=== PATIENT | male | born 1990 | race Caucasian/White ===

== ENCOUNTER 2024-09-08 19:22 | Emergency (ER) | payer OTHER, SELFPAY ==
[2024-09-08] VITALS (22 sets, daily range): BP systolic 107–158; BP diastolic 53–104; PULSE 62–106; RESP 11–28; TEMP 36; O2SAT 94–100
--- NOTE | 2024-09-08 19:15 | DI.CT_ITS ---
Exam(s) CT FACIAL WO EXAM: CT FACIAL WO CLINICAL HISTORY: seizure vs stroke, hit head, left jaw pain, disloc. TECHNIQUE: Imaging Protocol: Axial computed tomography images with coronal and sagittal reformatted images were created and reviewed. No IV contrast COMPARISON: No exams were available for comparison FINDINGS: MAXILLOFACIAL CT SCAN: There is no evidence of facial fractures nor fluid the visualized paranasal sinuses. There is no mukesh dence of orbital blowout fracture. No evidence of obvious mandible fracture. IMPRESSION: No evidence of facial bone fractures nor orbital fractures. RADIATION DOSE DELIVERED: 609.38mGy.cm Total DLP DATA REPOSITORY: All CT scans at this facility are submitted to the National Radiology Data Registry (NRDR) Dose Index Registry (DIR) with the [employer] (A[employer]). RADIATION OPTIMIZATION: All CT scans at this facility use at least one of these dose optimization te chniques: automated exposure control; mA and/or kV adjustment per patient size (includes targeted exa ms where dose is matched to clinical indication); or iterative reconstruction.
--- NOTE | 2024-09-08 19:15 | DI.CT_ITS ---
Exam(s) CT BRAIN NECK CTA EXAM: CT BRAIN NECK CTA CLINICAL HISTORY: seizure vs stroke, hit head, left jaw pain, disloc. TECHNIQUE: Imaging Protocol: Axial CT angiography was performed with multi-slice acquisition and mu lti-planar and/or 3D reconstructions. CONTRAST MATERIAL: Intravenous: Omnipaque 350 Contrast volume:structured data in ml COMPARISON: CT CT FACIAL WO from 09/08/2024 FINDINGS: CTA Neck W: Aortic arch anatomy: The aortic arch anatomy is conventional and there is no significant stenosis at the origin of the great vessels off of the aortic arch. No intimal flap evident. Anterior circulation: Both common carotid arteries ascend with normal luminal diameters. At the level the carotid bulbs and proximal internal carotid arteries there is minimal plaque without hemodynamically significant stenosis evident. Posterior circulation: Both vertebral arteries originate in conventional fashion off of the subclavian arteries and there is no obvious stenosis at the origin of the vertebral arteries. Both vertebral arteries exhibit normal luminal diameters within the foramen transversarium. No evide nce of vertebral artery thrombosis nor dissection. The left vertebral artery is dominant. Both vertebral arteries contribute to the formation of the basilar artery at the skull base. CTA Brain W: Anterior circulation:s Both internal carotid arteries are patent in the skull base-carotid canals as well as within the cave rnous sinuses. The supraclinoid aspects of the ICAs are patent. Both A1 segments are patent as are the anterior cer ebral arteries and there is no evidence of aneurysm at the level of the anterior communicating artery . Both middle cerebral arteries are patent with no evidence of significant stenosis nor intraluminal th rombus. There also no aneurysms of these vessels. Posterior circulation: The basilar artery ascends in the midline. Distally it gives off patent bilateral superior cerebella r arteries. Above this level the basilar artery terminates as patent bilateral posterior cerebral arteries. Ther e also posterior communicating arteries on both sides the khilrm-ci-Xnhlll. There is no evidence of aneurysm at the tip of the basilar artery nor elsewhere in the wuvbxa-da-Nivm is. CT BRAIN: There is no evidence of intracranial hemorrhage, mass effect, or shift of midline structures. There are no extra-axial fluid collections. Ventricles are not enlarged or shifted. There are no ring enh ancing lesions in the brain and no abnormal meningeal enhancement. IMPRESSION: 1. Patent carotid arteries in the neck. No hemodynamically significant stenosis. 2. Patent vertebral arteries. The left vertebral artery is dominant. 3. Patent intracranial arteries. 4. No acute intracranial findings. RADIATION DOSE DELIVERED: 2,372.31mGy.cm Total DLP DATA REPOSITORY: All CT scans at this facility are submitted to the National Radiology Data Registry (NRDR) Dose Index Registry (DIR) with the [employer] (ACR). RADIATION OPTIMIZATION: All CT scans at this facility use at least one of these dose optimization te chniques: automated exposure control; mA and/or kV adjustment per patient size (includes targeted exa ms where dose is matched to clinical indication); or iterative reconstruction.
--- NOTE | 2024-09-08 19:15 | RT.EKG_ITS ---
APPROVED REPORT Exam: Resting ECG Reason for Exam: syncope Patient Location: E HR:102 bpm ECG Measurements Heart Rate 102 AXIS GA [id number] P [id number] QRSd 87 QRS 66 QT 335 T 38 QTc 437 Conclusion Sinus, no stemi I have reviewed and interpreted ECG and agree with software generated interpretation.
--- NOTE | 2024-09-08 19:33 | W.ED.GENAD ---
Discharge Plan Disposition Patient Disposition: Home Condition: Good Discharge Details Clinical Impression: Seizure, Contusion of left jaw region Primary Care Provider: Susanna Ely ED Provider: Earnest Sofia Home Meds and New Rx's Prescriptions: No Action quetiapine [Seroquel] 100 mg tablet 100 mg PO BID levetiracetam [Keppra] 500 mg tablet 500 mg PO BID buprenorphine HCl 8 mg tablet, sublingual 16 mg sublingual DAILY hydroxyzine HCl 50 mg tablet 50 mg PO DAILY melatonin 3 mg tablet 3 mg PO DAILY Discharge Instructions Instructions: Seizures, Adult ED Additional Instructions: Please take your Keppra and do not miss any doses. Please stay well-hydrated. You have bruised your jaw, it would be bailey to stick with a soft diet for the next few days. If you notice any worsening of your symptoms, or any new symptoms such as vomiting, diarrhea, fever, chills, shortness of breath, chest pain, numbness, weakness, or fainting , please return immediately to the emergency department for reevaluation. Please follow up with your primary care provider as soon as possible for reassessment and reevaluation. As always, it was a pleasure participating in your medical care today. Referrals: Susanna Ely [Primary Care Provider] - [facility] General Date/Time Provider Initiated Documentation: 09/08/24 19:28. HPI Narrative: 34-year-old male with past medical history of chronic back pain secondary to old spinal fractures, seizures on Keppra, presents today for evaluation of seizure from the nursing home. History is limited, but per present staff and EMS they state that patient's last known well was 1836, it appeared that he had a tonic-clonic like seizure at around that time. Shortly thereafter his symptoms transitioned into partial paralysis on the left-hand side, and a rightward thrusted jaw, and a rightward rotated neck. Glucose was normal, he was brought to the ER for further assessment. History is not overly clear, but it sounds like he had multiple medication changes potentially while getting established and present however it sounds like he has been on his Keppra 500 mg twice daily for the last 2 days, is also been started on buprenorphine. [facility] shows that he was at the [facility] and left AMA on 07/07/2024 which was 2 months ago. At that time he had come to the ER had a seizure which appears very similar to what he had today. At that time he stated he had not been taking his Keppra. He had negative CT scan was eventually admitted. He had an EEG initially performed but ripped off of the leads and left AMA. Uncertain as to what happened between then and now in regards to further medical care. Currently the patient complains of mild headache, Mild left-sided jaw pain. He denies other complaints at this time. He does admit to chronic back pain but states that this is unchanged. He denies any numbness or tingling anywhere. Related Data Home Medications ?Medication ?Instructions ?Recorded ?Confirmed levetiracetam 500 mg tablet 500 mg PO BID 02/09/24 09/08/24 (Keppra) quetiapine 100 mg tablet (Seroquel) 100 mg PO BID 02/09/24 09/08/24 buprenorphine HCl 8 mg sublingual 16 mg sublingual DAILY 09/08/24 09/08/24 tablet hydroxyzine HCl 50 mg tablet 50 mg PO DAILY 09/08/24 09/08/24 melatonin 3 mg tablet 3 mg PO DAILY 09/08/24 09/08/24 Allergies Allergy/AdvReac Type Severity Reaction Status Date / Time codeine Allergy Severe Anaphylaxis Verified 09/08/24 19:27 General Stated Complaint: Seizure BERNADETTE: 2 Exam Narrative Exam Narrative: 1.Const: Well-nourished, Well-developed, appearing stated age 2.Eyes: PERRL, no conjunctival injection, and symmetrical lids. 3.ENT: Atraumatic external nose and ears. Moist MM. Neck: Symmetric, trachea midline, No thyromegaly. There is no evidence of raccoon eyes, pitt sign, CSF rhinorrhea, mastoid tenderness, cranial crepitus, hemotympanum, exophthalmos, or hyphema. Patient demonstrates intact dentition with no signs of tooth avulsion or fracture, no signs of jaw deformity however the patient's does have tenderness over the left TMJ, he does have some pain when opening his mouth with the pain located at his TMJs bilaterally, no evidence of a LeFort's fracture, with an intact palate, nose and orbital region. There is no evidence of a nasal septal hematoma. No proptosis. Airway is clear. 4.CVS: +S1/S2, Peripheral pulses 2+ and equal in all extremities. Brisk capillary refill in all extremities. 5.RESP: Unlabored respiratory effort. Clear to auscultation bilaterally. No wheezes rales or rhonchi 6.GI: Soft, Nontender/Nondistended, No hepatosplenomegaly. No guarding or rebound. 7.MSK: Normocephalic/Atraumatic, Extremities w/o deformity or ttp No cyanosis or clubbing, Normal movement of all extremities. No midline cervical thoracic or lumbar spine tenderness. CN 2-12 tested and intact, patient is able to hold bilateral arms up for 5 seconds and there is no pronator drift, patient also holds legs up for 10 seconds bilaterally without any drop, sensation intact to light touch in hands and feet bilaterally. Cerebellar exam normal as tested by [id number]-mjjy-hooalq, hmfy-nwic-lwue, rapid alternating movements, fine finger movements. Visual saravia intact peripherally. Normal speech pattern and verbal understanding. 8.Skin: Sweaty and clammy. 9.Neuro: medical care evaluation specialist II-XII grossly intact. Sensation grossly intact, no focal neurologic deficits. 10.Psych: (AAO) x3. Appropriate mood and affect Course Vital Signs Vital signs: Vital Signs Pulse 104 H 09/08/24 19:20 Respiratory Rate 16 09/08/24 19:20 Blood Pressure 154/84 H 09/08/24 19:20 Pulse Oximetry 94 09/08/24 19:20 Pulse 104 H 09/08/24 19:20 Respiratory Rate 16 09/08/24 19:20 Blood Pressure 154/84 H 09/08/24 19:20 Blood Pressure Position Supine 09/08/24 19:20 Pulse Oximetry 94 09/08/24 19:20 Oxygen Delivery Method Room Air 09/08/24 19:20 Oxygen Flow Rate 0 09/08/24 19:20 Medical Decision Making 34-year-old male with past medical history of chronic back pain secondary to old spinal fractures, seizures on Keppra, presents today for evaluation of seizure from the nursing home. History is limited, but per present staff and EMS they state that patient's last known well was 1836, it appeared that he had a tonic-clonic like seizure at around that time. Shortly thereafter his symptoms transitioned into partial paralysis on the left-hand side, and a rightward thrusted jaw, and a rightward rotated neck. Glucose was normal, he was brought to the ER for further assessment. History is not overly clear, but it sounds like he had multiple medication changes potentially while getting established and present however it sounds like he has been on his Keppra 500 mg twice daily for the last 2 days, is also been started on buprenorphine. [facility] shows that he was at the [facility] and left AMA on 07/07/2024 which was 2 months ago. At that time he had come to the ER had a seizure which appears very similar to what he had today. At that time he stated he had not been taking his Keppra. He had negative CT scan was eventually admitted. He had an EEG initially performed but ripped off of the leads and left AMA. Uncertain as to what happened between then and now in regards to further medical care. Currently the patient complains of mild headache, Mild left-sided jaw pain. He denies other complaints at this time. He does admit to chronic back pain but states that this is unchanged. He denies any numbness or tingling anywhere. Exam demonstrates slightly protruding stiff jaw, with tenderness over the left TMJ. Concern for potential dislocation versus oral spasm. Patient initially had a head that was rotated to the right significantly, with spasm of the sternocleidomastoid on the left. However this was able to be straightened out without difficulty. He has no midline cervical thoracic or lumbar spine tenderness. No other signs of significant trauma. No significant focal neurologic deficit to suggest stroke at this time. Differential is highest for seizure, stroke notably less likely. However he may have sustained a bleed after fall or the seizure. Will get CT angiogram of the brain to evaluate for vascular abnormality, will get Noncon of the head and face to evaluate for potential jaw dislocation, bleed or fracture. We will give 2 g of Keppra IV, 1 mg of Ativan, monitor closely rehydrate and reassess. I am concerned that he may be having muscle spasms post seizure leading to his torticollis and jaw spasm. 9:55 PM On reassessment patient is feeling much better. Symptoms have completely resolved. Repeat neurologic exam is normal with no focal neurologic deficits whatsoever. He has no evidence of torticollis, he is able to move his jaw freely without difficulty. On reassessment he does demonstrate very minimal soreness on the posterior aspect of the mandible, CT imaging does show a questionable curvilinear lucency seen along the lateral margin of the head of the left mandibular condyle potentially for a nondisplaced small fracture, however no other abnormality noted. Patient does not have tenderness in that focal area. However out of an abundance of precaution we will recommend soft diet. Patient continues to feel well, and shows no neurologic deficits or abnormalities otherwise. Laboratory workup is returned otherwise benign. He does have slight elevation of his AST and ALT respectively at 73 and 141, however review of [facility] labs from 2 months ago demonstrate equivalent findings with an AST and ALT of 95 and 119 respectively. This demonstrates chronicity. Patient otherwise appears well and is notably stable. No evidence of cauda equina syndrome on exam, no neurologic deficit. I did contact the nursing home and discussed the case with on-call nurse practitioner Brianna Nina, reemphasihalie and the importance of continued Keppra adherence. She understands and will relay this to the day team. Patient will be discharged home. Patient does give anecdotal story that he had been off Keppra for quite some time and he is only gotten it over the last 2 days and this noncompliance is likely a notable component of the seizure today. However he also states that when he was getting his medications today the morning med that was supposed to be Keppra, was a different pill when given in the evening, and it was a capsule not a tablet. Patient was concerned that perhaps this may not have been Keppra, which certainly could have been a component for the patient's seizures today. After being loaded with Keppra here, I do feel that he is stable for discharge. Discussed red flags for which to return. I have extensively reviewed the treatment plan and discharge instructions with the patient. I have addressed all patient concerns at this time. The patient was made aware of what symptoms to monitor for that would warrant a return to the emergency department. Discussed the plan with the patient, they demonstrate verbal understanding and agreement with our assessment and plan at this time. The documentation in this chart was dictated using [employer] dictation software. Please excuse any dictation errors. FINDINGS: Paranasal sinuses: Paranasal sinuses are clear throughout with no significant mucosal disease or layering fluid detected. Orbital cavities: Bony margins of the orbits are intact bilaterally with no orbital fractures detected. Both globes are intact and the intraorbital contents are normal in appearance and appear bilaterally symmetric. Bones: Nasal bones, zygomatic arches and right and left vertical and horizontal mandibular rami are all intact. Curvilinear lucency seen along the lateral margin of the head of the left mandibular condyle is suspicious for a nondisplaced fracture (see image 43, series 7). Soft tissues: Unremarkable. IMPRESSION: 1. Curvilinear lucency seen along the lateral margin of the head of the left mandibular condyle is suspicious for a nondisplaced fracture (see image 43, series 7). MRI could provide additional diagnostic information. 2. No other evidence of acute maxillofacial fracture is detected. Thank you for allowing us to participate in the care of your patient. FINDINGS: ANTERIOR CIRCULATION: Right internal carotid artery: Intracranial segment is patent with no significant stenosis or occlusion. No aneurysm. Right middle cerebral artery: No occlusion or significant stenosis. No aneurysm. Right anterior cerebral artery: No occlusion or significant stenosis. No aneurysm Left internal carotid artery: Intracranial segment is patent with no significant stenosis. No aneurysm. Left middle cerebral artery: No occlusion or significant stenosis. No aneurysm. Left anterior cerebral artery: No occlusion or significant stenosis. No aneurysm. POSTERIOR CIRCULATION: Right vertebral artery: No occlusion or significant stenosis. No aneurysm. Left vertebral artery: No occlusion or significant stenosis. No aneurysm. Basilar artery: No occlusion or significant stenosis. No aneurysm. Right posterior cerebral artery: origin of the right posterior cerebral artery is a common developmental variant and there is no occlusion or significant stenosis. No aneurysm. Left posterior cerebral artery: origin of the left posterior cerebral artery is a common developmental variant and there is no occlusion or significant stenosis. No aneurysm. HEAD: Brain: No acute transcortical infarction or recent intracranial hemorrhage is detected. Cerebral ventricles: No midline shift or hydrocephalus. Bones: No acute fracture. Paranasal sinuses: Grossly clear throughout. Mastoid air cells: Grossly clear bilaterally. Soft tissues: Unremarkable. IMPRESSION: 1. No large vessel stenosis or occlusion detected involving the major branches of the anterior or posterior intracranial circulation. 2. No acute transcortical infarction, recent intracranial hemorrhage or hydrocephalus. No acute intracranial process is detected. FINDINGS: Right common carotid artery: No stenosis. No dissection or occlusion. Right internal carotid artery: No stenosis of the extracranial segment. No dissection or occlusion. Right external carotid artery: No occlusion or stenosis of the origin. Left common carotid artery: No stenosis. No dissection or occlusion. Left internal carotid artery: No stenosis of the extracranial segment. No dissection or occlusion. Left external carotid artery: No occlusion or stenosis of the origin. Right vertebral artery: No stenosis. No dissection or occlusion. Left vertebral artery: No stenosis. No dissection or occlusion. Soft tissues: Normal. No significant soft tissue swelling. Bones/joints: No acute fracture. IMPRESSION: No evidence of 50% or greater stenosis involving the cervical segments of the right or left internal carotid arteries by NASCET criteria. REFERENCES: NASCET CRITERIA. The degree of stenosis in the cervical segment of the internal carotid artery is based on NASCET criteria. Normal is no stenosis. Mild is less than 50% stenosis. Moderate is 50- 69% stenosis. Severe is 70% to 99% stenosis. Total occlusion is no detectable patent lumen. Thank you for allowing us to participate in the care of your patient. Dictated and Authenticated by: Baldo Cullen MD 09/08/2024 8:14 PM Eastern Time ([place] & [place]) Quality:SDOH Health Related Social Needs: No Data to Display Critical Care Time Critical Care Time Critical Care Time: Yes Total Critical Care Time: 30 Attestation: Upon my evaluation, this patient had a high probability of imminent or life-threatening deterioration, which required my direct attention, intervention, and personal management. I have personally provided 30 minutes of critical care time exclusive of time spent on separately billable procedures. Time includes review of laboratory data, radiology results, discussion with consultants, and monitoring for potential decompensation. Interventions were performed as documented. PFSH All Active Problems (Updated 09/08/24 @ 22:01 by Earnest Sofia DO) Contusion of left jaw region (Acute) Seizure (Acute) Medical History Seizure History of recent travel Social History Smoking/Tobacco Use Status: Current-Occasional Tobacco Type: cigarettes Years smoked: 20 Smoking risk assessment performed?: Yes Alcohol Intake: former Substance use type: marijuana Housing: other
[2024-09-08] MEDS: Normal Saline - Diluent 50 ML VIAL IJ (19:36)
[2024-09-08 19:37] LABS: BE (Venous) 3 mmol/L (-2-3); HCO3 (Venous) 28 mmol/L (23-28); O2 Sat (Venous) 89 %; TCO2 (Venous) 24 mmol/L (24-29); pCO2 (Venous) 44 mmHg (41-51); pH (Venous) 7.41 (7.31-7.41); pO2 (Venous) 54 mmHg
[2024-09-08] MEDS: Omnipaque 350 MG/ML 100 ML BTL IJ (19:37)
[2024-09-08 19:42] LABS: Abs Immature Grans 0.02 10^3/uL (0.0-0.06); Absolute Basophil Count 0.08 10^3/uL (0.0-0.2); Absolute Eosinophil Count 0.22 10^3/uL (0.0-0.7); Absolute Lymphocyte Count 4.62 10^3/uL (1.2-3.4); Absolute Monocyte Count 0.83 10^3/uL (0.1-0.8); Absolute Neutrophil Count 3.66 10^3/uL (1.2-6.7); Basophils % 0.8 %; Eosinophils % 2.3 %; HCT 46.5 % (40.0-50.0); HGB 15.9 g/dL (13.5-17.5); Immature Grans % 0.2 %; MCH 29.5 pg (27.0-33.0); MCHC 34.2 % (32.0-36.0); MCV 86 fL (80-95); MPV 10.2 fL (8.0-11.0); Monocytes % 8.8 %; Neutrophils % 38.9 %; Platelet Count 286 10^3/uL (130-400); RBC 5.39 10^6/uL (4.36-5.78); RDW 14.5 % (11.8-14.1); RDW-SD 45.8 fL; WBC 9.43 10^3/uL (4.4-10.8)
[2024-09-08 19:50] LABS: INR 1.1 (0.9-1.1); PTT Activated 24.7 sec (23.6-32.8); Prothrombin Time 10.9 sec (9.1-11.1)
[2024-09-08 20:04] LABS: ALT 141 U/L (16-63); AST 73 U/L (15-37); Albumin 3.8 g/dL (3.4-5.0); Alkaline Phosphatase 85 U/L (46-116); Anion Gap 6.1 mmol/L (3-11); BUN 12 mg/dL (7-18); Bilirubin, Total 0.36 mg/dL (0.2-1.0); CO2 30.9 mmol/L (21.0-32.0); Calcium 8.8 mg/dL (8.5-10.1); Chloride 105 mmol/L (98-107); Estimated GFR 100.03 (mL/min/1.73m2); Glucose 83 mg/dL (74-106); Potassium 4.1 mmol/L (3.5-5.1); Sodium 142 mmol/L (136-145); TSH (W/Ref FT4) 4.71 uIU/mL (0.36-3.74); Total Protein 8.6 g/dL (6.4-8.2)
[2024-09-08] MEDS: levETIRAcetam 2,000 MG in Normal Saline 100 ML 400 MG IVPB (20:05)
[2024-09-08 20:08] LABS: ETHANOL BLOOD < 3.0 mg/dL (<10)
[2024-09-08] MEDS: Lactated Ringers 1,000 ML 1000 ML IV (20:08)
[2024-09-08] MEDS: LORazepam 2 MG/ML VIAL 1 MG IVP (20:08)
[2024-09-08] MEDS: ACETAMINOPHEN 1,000 MG/100 ML BAG 400 MG IVPB (20:09)
--- NOTE | 2024-09-08 20:14 | DI.VRAD_ITS ---
Addendum created by Baldo Cullen MD on 09/08/2024 8:19:25 PM EST: THIS REPORT CONTAINS FINDINGS THAT MAY BE CRITICAL TO PATIENT CARE. The findings were verbally communicated via telephone conference with SALAS AUGUSTE at 8:19 PM EST on 09/08/2024. The findings were acknowledged and understood. Initial report created on 09/08/2024 8:14:14 PM EST: PROCEDURE INFORMATION: Exam: CTA Head Without And With Contrast, Arteriography Exam date and time: 09/08/2024 7:46 PM Age: 34 years old Clinical indication: Stroke-like symptoms; Other: Seizure vs stroke, hit head, left jaw pain, disloc TECHNIQUE: Imaging protocol: Computed tomographic angiography of the head without and with contrast. Exam focused on the arteries. 3D rendering (Not supervised by radiologist): MIP and/or 3D reconstructed images were created by the technologist. Contrast material: OMNI 350; Contrast volume: 70 ml; Contrast route: INTRAVENOUS (IV); Other technique: STROKE PROTOCOL was implemented. COMPARISON: CT FACIAL WO 09/08/2024 7:43 PM FINDINGS: ANTERIOR CIRCULATION: Right internal carotid artery: Intracranial segment is patent with no significant stenosis or occlusion. No aneurysm. Right middle cerebral artery: No occlusion or significant stenosis. No aneurysm. Right anterior cerebral artery: No occlusion or significant stenosis. No aneurysm. Left internal carotid artery: Intracranial segment is patent with no significant stenosis. No aneurysm. Left middle cerebral artery: No occlusion or significant stenosis. No aneurysm. Left anterior cerebral artery: No occlusion or significant stenosis. No aneurysm. POSTERIOR CIRCULATION: Right vertebral artery: No occlusion or significant stenosis. No aneurysm. Left vertebral artery: No occlusion or significant stenosis. No aneurysm. Basilar artery: No occlusion or significant stenosis. No aneurysm. Right posterior cerebral artery: origin of the right posterior cerebral artery is a common developmental variant and there is no occlusion or significant stenosis. No aneurysm. Left posterior cerebral artery: origin of the left posterior cerebral artery is a common developmental variant and there is no occlusion or significant stenosis. No aneurysm. HEAD: Brain: No acute transcortical infarction or recent intracranial hemorrhage is detected. Cerebral ventricles: No midline shift or hydrocephalus. Bones: No acute fracture. Paranasal sinuses: Grossly clear throughout. Mastoid air cells: Grossly clear bilaterally. Soft tissues: Unremarkable. IMPRESSION: 1. No large vessel stenosis or occlusion detected involving the major branches of the anterior or posterior intracranial circulation. 2. No acute transcortical infarction, recent intracranial hemorrhage or hydrocephalus. No acute intracranial process is detected. ASSESSMENT: ASPECTS (Paige Stroke Program Early CT Score) is 10. PROCEDURE INFORMATION: Exam: CTA Neck Without And With Contrast Exam date and time: 09/08/2024 7:46 PM Age: 34 years old Clinical indication: Stroke-like symptoms; Other: Seizure vs stroke, hit head, left jaw pain, disloc TECHNIQUE: Imaging protocol: Computed tomographic angiography of the neck without and with contrast. Exam focused on the cervical segments of the vasculature. 3D rendering (Not supervised by radiologist): MIP and/or 3D reconstructed images were created by the technologist. Contrast material: OMNI 350; Contrast volume: 70 ml; Contrast route: INTRAVENOUS (IV); COMPARISON: CT FACIAL WO 09/08/2024 7:43 PM FINDINGS: Right common carotid artery: No stenosis. No dissection or occlusion. Right internal carotid artery: No stenosis of the extracranial segment. No dissection or occlusion. Right external carotid artery: No occlusion or stenosis of the origin. Left common carotid artery: No stenosis. No dissection or occlusion. Left internal carotid artery: No stenosis of the extracranial segment. No dissection or occlusion. Left external carotid artery: No occlusion or stenosis of the origin. Right vertebral artery: No stenosis. No dissection or occlusion. Left vertebral artery: No stenosis. No dissection or occlusion. Soft tissues: Normal. No significant soft tissue swelling. Bones/joints: No acute fracture. IMPRESSION: No evidence of 50% or greater stenosis involving the cervical segments of the right or left internal carotid arteries by NASCET criteria. REFERENCES: NASCET CRITERIA. The degree of stenosis in the cervical segment of the internal carotid artery is based on NASCET criteria. Normal is no stenosis. Mild is less than 50% stenosis. Moderate is 50-69% stenosis. Severe is 70% to 99% stenosis. Total occlusion is no detectable patent lumen. Dictated and Authenticated by: Baldo Cullen MD. Ordering:STEFANO Tinoco MD
--- NOTE | 2024-09-08 20:23 | DI.VRAD_ITS ---
PROCEDURE INFORMATION: Exam: CT Maxillofacial Without Contrast Exam date and time: 09/08/2024 7:43 PM Age: 34 years old Clinical indication: Injury or trauma; Fall; Blunt trauma (contusions or hematomas); Jaw and other: Seizure vs stroke, hit head, left jaw pain, disloc TECHNIQUE: Imaging protocol: Computed tomography of the face without contrast. COMPARISON: No relevant prior studies available. FINDINGS: Paranasal sinuses: Paranasal sinuses are clear throughout with no significant mucosal disease or layering fluid detected. Orbital cavities: Bony margins of the orbits are intact bilaterally with no orbital fractures detected. Both globes are intact and the intraorbital contents are normal in appearance and appear bilaterally symmetric. Bones: Nasal bones, zygomatic arches and right and left vertical and horizontal mandibular rami are all intact. Curvilinear lucency seen along the lateral margin of the head of the left mandibular condyle is suspicious for a nondisplaced fracture (see image 43, series 7). Soft tissues: Unremarkable. IMPRESSION: 1. Curvilinear lucency seen along the lateral margin of the head of the left mandibular condyle is suspicious for a nondisplaced fracture (see image 43, series 7). MRI could provide additional diagnostic information. 2. No other evidence of acute maxillofacial fracture is detected. Dictated and Authenticated by: Baldo Cullen MD. Ordering:STEFANO Tinoco MD
[2024-09-08 20:58] LABS: FREE T4 1.11 ng/dL (0.76-1.46)
[2024-09-08] MEDS: Ibuprofen 800 MG TAB PO (21:53)
== END 2024-09-08 22:03 | disposition home or self-care (01) ==
PROVIDERS: Emergency Provider Student in an Organized Health Care Education/Training Program; PCP Nurse Practitioner Adult Health
DX: G40.909 Epilepsy, unspecified, not intractable, without status epilepticus (principal); S00.83XA Contusion of other part of head, initial encounter; W18.39XA Other fall on same level, initial encounter; Y93.89 Activity, other specified; F17.210 Nicotine dependence, cigarettes, uncomplicated
CPT/HCPCS: 70496; 70498; 80053; 82805; 82962; 87637; 93005; 96365; 96367; 99285; 70486; 80320; 84439; 84443; 85025; 85610; 85730; 93010; J0131; J1953; J2060; J3490